=== PATIENT | male | born 1935 | race Caucasian/White ===

== ENCOUNTER 2018-07-24 00:18 | Inpatient (IN) | payer MEDICARE ==
[~2018-07-24] VITALS: Ht 170.2 cm; Wt 77.0 kg
[2018-07-24] MEDS ORDERED: piperacillin/tazo 3.375gm/50ml 50 ML IV ONE (01:50)
[2018-07-24 02:32] LABS: BASOPHILS % (AUTO) 0.2 % (0-1); EOSINOPHILS # (AUTO) 0.5 X10'3 (0-0.9); EOSINOPHILS % (AUTO) 6.6 % (0-6); HEMATOCRIT 43.8 % (42.0-52.0); HEMOGLOBIN 14.8 g/dl (14.0-17.9); LYMPHOCYTES # (AUTO) 0.8 X10'3 (1.1-4.8); LYMPHOCYTES % (AUTO) 10.3 % (21-51); MEAN CORPUSCULAR HGB CONC 33.8 % (33.0-36.5); MEAN CORPUSCULAR VOLUME 88.6 FL (78-98); MEAN PLATELET VOLUME 8.9 FL (7.4-10.4); MONOCYTES # (AUTO) 0.6 X10'3 (0-0.9); MONOCYTES % (AUTO) 8.4 % (2-12); NEUTROPHILS # (AUTO) 5.4 X10'3 (1.8-7.7); NEUTROPHILS % (AUTO) 74.5 % (42-75); PLATELET COUNT 200 X10'3 (140-440); RED BLOOD COUNT 4.94 X10'6 (4.70-6.10); RED CELL DISTRIBUTION WIDTH 14.9 % (11.5-14.5); WHITE BLOOD COUNT 7.3 X10'3 (4.5-11.0)
[2018-07-24 02:42] LABS: PROTHROMBIN TIME 10.6 SECONDS (9.0-12.0)
[2018-07-24 04:06] LABS: ALANINE AMINOTRANSFERASE 27 U/L (12-78); ALBUMIN 3.6 G/DL (3.4-5.0); ALBUMIN/GLOBULIN RATIO 0.9 (1.1-1.5); ALKALINE PHOSPHATASE 77 IU/L (46-116); ANION GAP 8 (8-16); ASPARTATE AMINO TRANSFERASE 16 U/L (10-37); BILIRUBIN,TOTAL 0.4 MG/DL (0.1-1.0); BLOOD UREA NITROGEN 17 MG/DL (7-18); BUN/CREATININE RATIO 12.5 (5.4-32.0); CALCIUM 9.1 MG/DL (8.5-10.1); CHLORIDE 103 MMOL/L (99-107); CREATININE 1.36 MG/DL (0.60-1.10); GLUCOSE 114 MG/DL (70-104); POTASSIUM 3.8 MMOL/L (3.5-5.1); SODIUM 138 MMOL/L (135-145); TOTAL CARBON DIOXIDE 27.5 MMOL/L (24-32); TOTAL PROTEIN 7.8 G/DL (6.4-8.2); eGFR 50 ML/MIN
[2018-07-24] MEDS ORDERED: LOSA50TA3 PO (06:01)
[2018-07-24] MEDS ORDERED: AMLO2.5T2 PO (06:02)
[2018-07-24] MEDS ORDERED: SYN0.088T PO (06:04)
[2018-07-24] MEDS ORDERED: LEVO25TA2 PO (06:04)
[2018-07-24] MEDS ORDERED: CLIN300C17 PO (06:06)
[2018-07-24] MEDS ORDERED: magnesium 1gm/100ml D5W IVPB 100 ML IV PRN (06:10)
[2018-07-24] MEDS ORDERED: docusate sod 100mg capsule PO PRN (06:10)
[2018-07-24] MEDS ORDERED: morphine 4 MG/ML inj SYRINge IV PRN ×2 (06:10)
[2018-07-24] MEDS ORDERED: ondansetron/PF 4mg/2ml inj IV PRN (06:10)
[2018-07-24] MEDS ORDERED: potassium Cl 20 mEq SR tablet PO PRN ×2 (06:10)
[2018-07-24] MEDS ORDERED: magnesium Cl slow-release 64mg tablet PO PRN (06:10)
[2018-07-24] MEDS ORDERED: potassium Cl 40MEQ/NS 500ml 500 ML IV PRN ×2 (06:10)
[2018-07-24] MEDS ORDERED: acetaminophen 325mg tablet PO PRN ×2 (06:10)
[2018-07-24] MEDS ORDERED: magnesium 4gm in 100ml NS 100 ML IV PRN (06:10)
[2018-07-24] MEDS ORDERED: mag hydrox/Alum hydrox/simeth 30ml oral suspension PO PRN (06:10)
[2018-07-24] MEDS: normal saline 1000ml 1,000 ML IV SCH ×2 (06:55→16:09)
[2018-07-24] MEDS: levoFLOXACIN-Levaquin 500mg/D5 100 ML IV SCH ×2 (06:55→07:16)
[2018-07-24 07:45] VITALS: BP 153/75
[2018-07-24] MEDS: K and/or MAG REPLACEMENT MC SCH (08:00)
[2018-07-24] MEDS: enoxaparin 40mg/0.4ml syringe SQ SCH (08:00)
[2018-07-24 08:51] LABS: MAGNESIUM 2.5 MG/DL (1.5-2.4)
[2018-07-24] MEDS: amLODIPine 5mg tablet PO SCH (08:51)
[2018-07-24] MEDS: levoTHYROXINE 112mcg tablet PO SCH (08:51)
[2018-07-24] MEDS: losartan 50mg tablet PO SCH (08:51)
[2018-07-24] MEDS: vancomycin/NS 1 GM ADD-VANTAGE 250 ML IV SCH (09:24)
[2018-07-24 11:00] VITALS: BP 120/60
[2018-07-24 15:00] VITALS: BP 126/57
[2018-07-24 19:00] VITALS: BP 163/67
[2018-07-24] MEDS: lactobacillus rhamnosus 10,000 MMU CELLS/CAPSULE PO SCH (19:51)
[2018-07-24] MEDS: nystatin 15 GM powder TP SCH (20:37)
[2018-07-24 23:00] VITALS: BP 123/70
[2018-07-25 05:00] VITALS: BP 127/84
[2018-07-25 05:52] LABS: BASOPHILS % (AUTO) 0.5 % (0-1); EOSINOPHILS # (AUTO) 0.6 X10'3 (0-0.9); EOSINOPHILS % (AUTO) 8.2 % (0-6); HEMATOCRIT 43.2 % (42.0-52.0); HEMOGLOBIN 14.4 g/dl (14.0-17.9); LYMPHOCYTES # (AUTO) 0.8 X10'3 (1.1-4.8); LYMPHOCYTES % (AUTO) 11.4 % (21-51); MEAN CORPUSCULAR HEMOGLOBIN 29.4 PG (27.0-31.0); MEAN CORPUSCULAR HGB CONC 33.2 % (33.0-36.5); MEAN CORPUSCULAR VOLUME 88.6 FL (78-98); MEAN PLATELET VOLUME 8.6 FL (7.4-10.4); MONOCYTES # (AUTO) 0.7 X10'3 (0-0.9); MONOCYTES % (AUTO) 9.4 % (2-12); NEUTROPHILS # (AUTO) 4.9 X10'3 (1.8-7.7); NEUTROPHILS % (AUTO) 70.5 % (42-75); PLATELET COUNT 191 X10'3 (140-440); RED BLOOD COUNT 4.88 X10'6 (4.70-6.10); RED CELL DISTRIBUTION WIDTH 14.8 % (11.5-14.5)
[2018-07-25 06:38] LABS: ALANINE AMINOTRANSFERASE 22 U/L (12-78); ALBUMIN/GLOBULIN RATIO 0.8 (1.1-1.5); ALKALINE PHOSPHATASE 56 IU/L (46-116); ANION GAP 11 (8-16); ASPARTATE AMINO TRANSFERASE 16 U/L (10-37); BILIRUBIN,TOTAL 0.7 MG/DL (0.1-1.0); BLOOD UREA NITROGEN 11 MG/DL (7-18); BUN/CREATININE RATIO 10.8 (5.4-32.0); CALCIUM 8.2 MG/DL (8.5-10.1); CHLORIDE 104 MMOL/L (99-107); CHOL/HDL RATIO 5.3 (0.00-4.99); CHOLESTEROL 155 MG/DL (0-200); CREATININE 1.02 MG/DL (0.60-1.10); GLUCOSE 103 MG/DL (70-104); HDL CHOLESTEROL 29 MG/DL (35-60); LDL CHOLESTEROL 106 MG/DL (50-100); MAGNESIUM 2.3 MG/DL (1.5-2.4); POTASSIUM 3.8 MMOL/L (3.5-5.1); SODIUM 138 MMOL/L (135-145); TOTAL CARBON DIOXIDE 22.7 MMOL/L (24-32); TOTAL PROTEIN 6.9 G/DL (6.4-8.2); TRIGLYCERIDES 131 MG/DL (20-135); eGFR 70 ML/MIN
[2018-07-25] MEDS: K and/or MAG REPLACEMENT MC SCH (08:00)
[2018-07-25] MEDS ORDERED: loperamide 2mg capsule PO ONE (08:30)
[2018-07-25] MEDS: normal saline 1000ml 1,000 ML IV SCH (08:44)
[2018-07-25] MEDS: vancomycin/NS 1 GM ADD-VANTAGE 250 ML IV SCH (08:44)
[2018-07-25] MEDS: lactobacillus rhamnosus 10,000 MMU CELLS/CAPSULE PO SCH (08:47)
[2018-07-25] MEDS: amLODIPine 5mg tablet PO SCH (08:47)
[2018-07-25] MEDS: levoTHYROXINE 112mcg tablet PO SCH (08:47)
[2018-07-25] MEDS: losartan 50mg tablet PO SCH (08:47)
[2018-07-25] MEDS: enoxaparin 40mg/0.4ml syringe SQ SCH (08:48)
[2018-07-25] MEDS: nystatin 15 GM powder TP SCH (08:51)
[2018-07-25] MEDS ORDERED: DOXY-200 PO (09:06)
[2018-07-25] MEDS ORDERED: LOPE1TAB46 PO (09:06)
[2018-07-25] MEDS ORDERED: NYSPWD TP (09:06)
[2018-07-25] MEDS ORDERED: vancomycin/NS 1 GM ADD-VANTAGE 250 ML IV SCH (19:00)
[2018-07-27] MEDS ORDERED: VANCOMYCIN LEVEL IV ONE (06:30)
== END 2018-07-25 13:00 | disposition home or self-care (01) | DRG 603 ==
LOC: ER 00:19 → ED HOLD 06:09 → PCU 3S 07:59
PROVIDERS: ADMIT Family Medicine; ATTEND Internal Medicine
DX: L03.115 Cellulitis of right lower limb (principal); I10 Essential (primary) hypertension; E03.9 Hypothyroidism, unspecified; E78.5 Hyperlipidemia, unspecified; I25.10 Atherosclerotic heart disease of native coronary artery without angina pectoris; B36.8 Other specified superficial mycoses; Z90.49 Acquired absence of other specified parts of digestive tract; Z95.1 Presence of aortocoronary bypass graft; Z95.5 Presence of coronary angioplasty implant and graft; Z79.899 Other long term (current) drug therapy; Z87.891 Personal history of nicotine dependence; Z82.49 Family history of ischemic heart disease and other diseases of the circulatory system; Z71.89 Other specified counseling
CPT/HCPCS: 36415; 73590; 80053; 80061; 83605; 83735; 84145; 84443; 85025; 85610; 86140; 87040; 87070; 87324; 87449; 96365; 99285; A6213; J1650; J1956; J2543; J3370; J7030

== ENCOUNTER 2018-07-28 09:20 | Outpatient (CLI) | payer MEDICARE ==
[~2018-07-28 09:20] MED LIST: AMLO2.5T2 PO; DOXY-200 PO; LEVO25TA2 PO; LOPE1TAB46 PO; LOSA50TA3 PO; NYSPWD TP
[2018-07-28] MEDS ORDERED: DOXY100C2 PO (11:31)
[2018-07-28] MEDS ORDERED: AMLO-93 PO (11:31)
[2018-07-28] MEDS ORDERED: LEVO112T39 PO (11:31)
[2018-07-28] MEDS ORDERED: LOSA25TA96 PO (11:31)
[2018-07-28] MEDS ORDERED: MAGN400T6 PO (11:35)
[2018-07-28] MEDS ORDERED: OMEG1CAP PO (11:35)
[2018-07-28] MEDS ORDERED: silver sulfadiazine cream 50gm TP ONE (12:04)
== END 2018-07-28 12:29 | disposition home or self-care (01) ==
LOC: WOUND CARE 09:20 → MERGE 09:20 → EDSTATUS 09:30 → WOUND CARE 12:29
PROVIDERS: ATTEND Surgery
DX: L03.115 Cellulitis of right lower limb (principal); I87.2 Venous insufficiency (chronic) (peripheral)
CPT/HCPCS: 99215; A6223; A6446

== ENCOUNTER 2018-08-11 11:02 | Outpatient (CLI) | payer MEDICARE ==
[~2018-08-11 11:02] MED LIST changes: +AMLO-93 PO; -DOXY-200 PO; +DOXY100C2 PO; +LEVO112T39 PO; +LOSA25TA96 PO; +MAGN400T6 PO; +OMEG1CAP PO
== END 2018-08-11 11:54 | disposition home or self-care (01) ==
LOC: WOUND CARE 11:02
PROVIDERS: ATTEND Surgery
DX: L97.211 Non-pressure chronic ulcer of right calf limited to breakdown of skin (principal); L03.115 Cellulitis of right lower limb; I83.11 Varicose veins of right lower extremity with inflammation; I25.10 Atherosclerotic heart disease of native coronary artery without angina pectoris; I10 Essential (primary) hypertension; E78.5 Hyperlipidemia, unspecified; E03.9 Hypothyroidism, unspecified; Z79.899 Other long term (current) drug therapy; Z90.49 Acquired absence of other specified parts of digestive tract; Z87.891 Personal history of nicotine dependence; Z95.1 Presence of aortocoronary bypass graft; Z95.5 Presence of coronary angioplasty implant and graft
CPT/HCPCS: 99214

== ENCOUNTER 2018-10-13 09:19 | Day surgery (SDC) | payer MEDICARE ==
[2018-10-13] MEDS ORDERED: silver sulfadiazine cream 50gm TP ONE (12:07)
== END 2018-10-13 12:31 | disposition home or self-care (01) ==
LOC: WOUND CARE 09:19
PROVIDERS: ATTEND Surgery
DX: L97.811 Non-pressure chronic ulcer of other part of right lower leg limited to breakdown of skin (principal); I83.013 Varicose veins of right lower extremity with ulcer of ankle; L97.311 Non-pressure chronic ulcer of right ankle limited to breakdown of skin; L03.115 Cellulitis of right lower limb; I83.11 Varicose veins of right lower extremity with inflammation; I25.10 Atherosclerotic heart disease of native coronary artery without angina pectoris; I10 Essential (primary) hypertension; E78.5 Hyperlipidemia, unspecified; E03.9 Hypothyroidism, unspecified; Z79.899 Other long term (current) drug therapy; Z90.49 Acquired absence of other specified parts of digestive tract; Z87.891 Personal history of nicotine dependence; Z95.1 Presence of aortocoronary bypass graft; Z95.5 Presence of coronary angioplasty implant and graft
CPT/HCPCS: 93971; 97597; 97598; A6223; A6441

== ENCOUNTER 2018-10-20 10:50 | Outpatient (CLI) | payer MEDICARE ==
[~2018-10-20 10:50] MED LIST changes: -AMLO-93 PO; -NYSPWD TP
== END 2018-10-20 12:04 | disposition home or self-care (01) ==
LOC: WOUND CARE 10:50 → EDSTATUS 11:00 → WOUND CARE 12:04
PROVIDERS: ATTEND Surgery
DX: L97.811 Non-pressure chronic ulcer of other part of right lower leg limited to breakdown of skin (principal); I83.013 Varicose veins of right lower extremity with ulcer of ankle; L97.311 Non-pressure chronic ulcer of right ankle limited to breakdown of skin; L03.115 Cellulitis of right lower limb; I83.11 Varicose veins of right lower extremity with inflammation; I25.10 Atherosclerotic heart disease of native coronary artery without angina pectoris; I10 Essential (primary) hypertension; E78.5 Hyperlipidemia, unspecified; E03.9 Hypothyroidism, unspecified; Z79.899 Other long term (current) drug therapy; Z90.49 Acquired absence of other specified parts of digestive tract; Z87.891 Personal history of nicotine dependence; Z95.1 Presence of aortocoronary bypass graft; Z95.5 Presence of coronary angioplasty implant and graft
CPT/HCPCS: 29581; A6223; A6441

== ENCOUNTER 2018-10-27 10:58 | Outpatient (CLI) | payer MEDICARE | END 2018-10-27 13:24 | disposition home or self-care (01) | LOC: WOUND CARE 10:58 → EDSTATUS 11:00 → WOUND CARE 13:24 | PROVIDERS: ATTEND Surgery | DX: L97.811 Non-pressure chronic ulcer of other part of right lower leg limited to breakdown of skin (principal); I83.013 Varicose veins of right lower extremity with ulcer of ankle; L97.311 Non-pressure chronic ulcer of right ankle limited to breakdown of skin; L03.115 Cellulitis of right lower limb; I83.11 Varicose veins of right lower extremity with inflammation; I25.10 Atherosclerotic heart disease of native coronary artery without angina pectoris; I10 Essential (primary) hypertension; E78.5 Hyperlipidemia, unspecified; E03.9 Hypothyroidism, unspecified; Z79.899 Other long term (current) drug therapy; Z90.49 Acquired absence of other specified parts of digestive tract; Z87.891 Personal history of nicotine dependence; Z95.1 Presence of aortocoronary bypass graft; Z95.5 Presence of coronary angioplasty implant and graft | CPT/HCPCS: 29581; A6446 ==

== ENCOUNTER 2018-11-03 10:50 | Outpatient (CLI) | payer MEDICARE ==
[2018-11-03] MEDS ORDERED: nystatin/triamcinolone cream 15gm TP ONE (13:00)
== END 2018-11-03 13:10 | disposition home or self-care (01) ==
LOC: WOUND CARE 10:50 → EDSTATUS 11:00 → WOUND CARE 13:10
PROVIDERS: ATTEND Surgery
DX: L97.811 Non-pressure chronic ulcer of other part of right lower leg limited to breakdown of skin (principal); I83.013 Varicose veins of right lower extremity with ulcer of ankle; L97.311 Non-pressure chronic ulcer of right ankle limited to breakdown of skin; L03.115 Cellulitis of right lower limb; I83.11 Varicose veins of right lower extremity with inflammation; I25.10 Atherosclerotic heart disease of native coronary artery without angina pectoris; I10 Essential (primary) hypertension; E78.5 Hyperlipidemia, unspecified; E03.9 Hypothyroidism, unspecified; Z79.899 Other long term (current) drug therapy; Z90.49 Acquired absence of other specified parts of digestive tract; Z87.891 Personal history of nicotine dependence; Z95.1 Presence of aortocoronary bypass graft; Z95.5 Presence of coronary angioplasty implant and graft
CPT/HCPCS: 29581; 99215; A6441

== ENCOUNTER 2018-11-10 10:48 | Outpatient (CLI) | payer MEDICARE | END 2018-11-10 11:58 | disposition home or self-care (01) | LOC: WOUND CARE 10:48 → EDSTATUS 11:00 → WOUND CARE 11:58 | PROVIDERS: ATTEND Surgery | DX: I83.013 Varicose veins of right lower extremity with ulcer of ankle (principal); L97.811 Non-pressure chronic ulcer of other part of right lower leg limited to breakdown of skin; L97.311 Non-pressure chronic ulcer of right ankle limited to breakdown of skin; I83.11 Varicose veins of right lower extremity with inflammation; I25.10 Atherosclerotic heart disease of native coronary artery without angina pectoris; I10 Essential (primary) hypertension; E78.5 Hyperlipidemia, unspecified; E03.9 Hypothyroidism, unspecified; Z79.899 Other long term (current) drug therapy; Z90.49 Acquired absence of other specified parts of digestive tract; Z87.891 Personal history of nicotine dependence; Z95.1 Presence of aortocoronary bypass graft; Z95.5 Presence of coronary angioplasty implant and graft | CPT/HCPCS: 29581; A6441 ==

== ENCOUNTER 2018-11-17 10:56 | Outpatient (CLI) | payer MEDICARE | END 2018-11-17 13:27 | disposition home or self-care (01) | LOC: WOUND CARE 10:56 → EDSTATUS 11:00 → WOUND CARE 13:27 | PROVIDERS: ATTEND Surgery | DX: I83.013 Varicose veins of right lower extremity with ulcer of ankle (principal); L97.811 Non-pressure chronic ulcer of other part of right lower leg limited to breakdown of skin; L97.311 Non-pressure chronic ulcer of right ankle limited to breakdown of skin; I83.11 Varicose veins of right lower extremity with inflammation; I25.10 Atherosclerotic heart disease of native coronary artery without angina pectoris; I10 Essential (primary) hypertension; E78.5 Hyperlipidemia, unspecified; E03.9 Hypothyroidism, unspecified; Z79.899 Other long term (current) drug therapy; Z90.49 Acquired absence of other specified parts of digestive tract; Z87.891 Personal history of nicotine dependence; Z95.1 Presence of aortocoronary bypass graft; Z95.5 Presence of coronary angioplasty implant and graft | CPT/HCPCS: 99214 ==

== ENCOUNTER 2018-12-08 10:49 | Outpatient (CLI) | payer MEDICARE ==
[2018-12-08] MEDS ORDERED: hydrocortisone 1% cream 28gm TP ONE (11:33)
--- NOTE | 2018-12-08 12:00 | NUR ---
Patient ambulated independently from [facility] and was admitted to outpatient wound care for physician visit with Jorge Valentine MD. Dressing removed, wound cleansed. Patient assessed for changes in conditions, medications and medical history. 1120 - Dr. Valentine at bedside accompanied by RN. Wound assessed by MD. Plan of care discussed with patient. Dressings placed per MD orders. Pt instructed to elevate legs at least 30 minutes 3 times a day or 10 minutes every 4 hours, also instructed check their toes. If they become purplish or blue, cool to the touch, numb or tingly, use a pair of scissors and carefully cut off the dressing. Call the Wound Center for an appointment to have the dressing reapplied. Pt instructed that decreased swelling in the legs and the potential for drainage from the wound may require them to have to schedule visits twice weekly, progressing to weekly as the swelling decreases in their legs. Pt instructed that if dressings become loose, wrinkled or falls down and if they are experiencing any pain or discomfort under their dressing cut the dressing off and call the Wound Center to have it reapplied. Pt instructed that the wrap needs to be kept dry. They may bath at a sink or there are devices designed to keep dressings dry these are available at most drug stores. If they choose to shower with a plastic bag taped over the wrap. Be sure to having another person available for assistance or placing towels on the floor of the shower or tub to eliminate the slick surface can reduce the risk of falls. Patient instructed on the signs and symptoms of infection and to call the Wound Center if any occur or to go to the ED if we are closed: Increased pain in wound Increase in drainage from the wound Redness in the skin surrounding the wound Bleeding from the wound Temperature of 101 or greater Patient instructed that the weight of their body puts a large amount of pressure on their wounds. This pressure keeps the new tissue from growing and inhibits new blood vessels from forming. Explained that, if they continue to bear weight on a body part that has a wound, the time it takes to heal the wound increases, the wound may get worse or the wound may not heal at all. Patient verbalized understanding of all discharge instructions and plan of care and ambulated independently out to [facility] in stable condition with no sign or symptom of distress at time of discharge.
== END 2018-12-08 11:48 | disposition home or self-care (01) ==
LOC: WOUND CARE 10:49 → EDSTATUS 11:00 → WOUND CARE 11:48
PROVIDERS: ATTEND Surgery
DX: I83.013 Varicose veins of right lower extremity with ulcer of ankle (principal); L97.311 Non-pressure chronic ulcer of right ankle limited to breakdown of skin; L97.811 Non-pressure chronic ulcer of other part of right lower leg limited to breakdown of skin; I83.11 Varicose veins of right lower extremity with inflammation; I25.10 Atherosclerotic heart disease of native coronary artery without angina pectoris; I10 Essential (primary) hypertension; E78.5 Hyperlipidemia, unspecified; E03.9 Hypothyroidism, unspecified; Z79.899 Other long term (current) drug therapy; Z90.49 Acquired absence of other specified parts of digestive tract; Z87.891 Personal history of nicotine dependence; Z95.1 Presence of aortocoronary bypass graft; Z95.5 Presence of coronary angioplasty implant and graft
CPT/HCPCS: 29581; A6441

== ENCOUNTER 2018-12-29 10:48 | Outpatient (CLI) | payer MEDICARE ==
--- NOTE | 2018-12-29 13:33 | NUR ---
Patient ambulated independently from [facility] and was admitted to outpatient wound care for physician visit. No dressings in place. Patient assessed and medications and medical history reviewed. Dr. Valentine at bedside accompanied by RN. Wound assessed and no debridement was done. Patient was diagnosed as healed and discharged. Patient instructed on the signs and symptoms of infection and to call the Wound Center if any occur or to go to the ED if we are closed: Increased pain in wound Increase in drainage from the wound Redness in the skin surrounding the wound Bleeding from the wound Temperature of 101 or greater Patient verbalized understanding of all discharge instructions and plan of care and ambulated independently out to [facility] in stable condition with no complaints. Addendum: 12/29/18 at 1336 by Bree Pickett RN Amended: Links added.
== END 2018-12-29 12:13 | disposition home or self-care (01) ==
LOC: WOUND CARE 10:48 → EDSTATUS 11:00 → WOUND CARE 12:13
PROVIDERS: ATTEND Surgery
DX: I83.013 Varicose veins of right lower extremity with ulcer of ankle (principal); L97.311 Non-pressure chronic ulcer of right ankle limited to breakdown of skin; L97.811 Non-pressure chronic ulcer of other part of right lower leg limited to breakdown of skin; I83.11 Varicose veins of right lower extremity with inflammation; I25.10 Atherosclerotic heart disease of native coronary artery without angina pectoris; I10 Essential (primary) hypertension; E78.5 Hyperlipidemia, unspecified; E03.9 Hypothyroidism, unspecified; Z79.899 Other long term (current) drug therapy; Z90.49 Acquired absence of other specified parts of digestive tract; Z87.891 Personal history of nicotine dependence; Z95.1 Presence of aortocoronary bypass graft; Z95.5 Presence of coronary angioplasty implant and graft
CPT/HCPCS: G0463

== ENCOUNTER 2019-03-31 10:35 | Outpatient (CLI) | payer MEDICARE ==
[2019-03-31] MEDS ORDERED: hydrocortisone 1% cream 28gm TP ONE (12:20)
--- NOTE | 2019-03-31 12:30 | NUR ---
Patient ambulated independently from [facility] and was admitted to outpatient wound care for physician visit with Jorge Valentine MD. Wound assessed. Patient assessed for changes in conditions, medications and medical history. 1155 - Dr. Valentine at bedside accompanied by RN. Wound assessed by MD; orders written. Plan of care discussed with patient. Dressings placed per MD orders. Patient is to follow up on an as needed basis. Patient instructed on the signs and symptoms of infection and to call the Wound Center if any occur or to go to the ED if we are closed: Increased pain in wound Increase in drainage from the wound Redness in the skin surrounding the wound Bleeding from the wound Temperature of 101 or greater Patient instructed that the weight of their body puts a large amount of pressure on their wounds. This pressure keeps the new tissue from growing and inhibits new blood vessels from forming. Explained that, if they continue to bear weight on a body part that has a wound, the time it takes to heal the wound increases, the wound may get worse or the wound may not heal at all. Patient verbalized understanding of all discharge instructions and plan of care and ambulated independently out to [facility] in stable condition with no sign or symptom of distress at time of discharge.
== END 2019-03-31 12:32 | disposition home or self-care (01) ==
LOC: WOUND CARE 10:35
PROVIDERS: ATTEND Surgery
DX: I83.11 Varicose veins of right lower extremity with inflammation (principal); L97.811 Non-pressure chronic ulcer of other part of right lower leg limited to breakdown of skin; I83.013 Varicose veins of right lower extremity with ulcer of ankle; L97.311 Non-pressure chronic ulcer of right ankle limited to breakdown of skin; I25.10 Atherosclerotic heart disease of native coronary artery without angina pectoris; B36.9 Superficial mycosis, unspecified; I10 Essential (primary) hypertension; E78.5 Hyperlipidemia, unspecified; E03.9 Hypothyroidism, unspecified; Z79.899 Other long term (current) drug therapy; Z90.49 Acquired absence of other specified parts of digestive tract; Z87.891 Personal history of nicotine dependence; Z95.1 Presence of aortocoronary bypass graft; Z95.5 Presence of coronary angioplasty implant and graft
CPT/HCPCS: A6446; G0463

== ENCOUNTER 2019-06-22 10:10 | Outpatient (CLI) | payer MEDICARE ==
[~2019-06-22 10:10] MED LIST changes: +MAGN400T28 PO; -MAGN400T6 PO
[2019-06-22] MEDS ORDERED: nystatin/triamcinolone cream 15gm TP ONE (11:18)
--- NOTE | 2019-06-22 15:45 | NUR ---
Patient ambulated independently from [facility] and was admitted to outpatient wound care for return visit with . Patient assessed and medications and medical history reviewed. Dr. Valentine at bedside accompanied by RN. Wound assessed and plan of care discussed with patient. Dressings placed per MD orders. Patient instructed on the signs and symptoms of infection and to call the Wound Center if any occur or to go to the ED if we are closed: Increased pain in wound Increase in drainage from the wound Redness in the skin surrounding the wound Bleeding from the wound Temperature of 101 or greater Patient instructed that the weight of their body puts a large amount of pressure on their wounds. This pressure keeps the new tissue from growing and inhibits new blood vessels from forming. Explained that, if they continue to bear weight on a body part that has a wound, the time it takes to heal the wound increases, the wound may get worse or the wound may not heal at all. Patient verbalized understanding of all discharge instructions and plan of care and ambulated independently out to [facility] in stable condition with no sign or symptom of distress at time of discharge. Addendum: 06/22/19 at 1547 by Bree Pickett RN Amended: Links added.
== END 2019-06-22 11:31 | disposition home or self-care (01) ==
LOC: WOUND CARE 10:10
PROVIDERS: ATTEND Surgery
DX: I83.11 Varicose veins of right lower extremity with inflammation (principal); L97.811 Non-pressure chronic ulcer of other part of right lower leg limited to breakdown of skin; I83.013 Varicose veins of right lower extremity with ulcer of ankle; L97.311 Non-pressure chronic ulcer of right ankle limited to breakdown of skin; I25.10 Atherosclerotic heart disease of native coronary artery without angina pectoris; B36.9 Superficial mycosis, unspecified; I10 Essential (primary) hypertension; E78.5 Hyperlipidemia, unspecified; E03.9 Hypothyroidism, unspecified; Z79.899 Other long term (current) drug therapy; Z90.49 Acquired absence of other specified parts of digestive tract; Z87.891 Personal history of nicotine dependence; Z95.1 Presence of aortocoronary bypass graft; Z95.5 Presence of coronary angioplasty implant and graft
CPT/HCPCS: G0463; J7999; A4663; A6446

== ENCOUNTER 2019-06-29 11:05 | Outpatient (CLI) | payer MEDICARE ==
[2019-06-29] MEDS ORDERED: nystatin/triamcinolone cream 15gm TP ONE (12:03)
--- NOTE | 2019-06-29 14:16 | NUR ---
Patient ambulated independently from [facility] and was admitted to outpatient wound care for physician visit. Dressings removed, wound cleansed. Patient assessment completed with review of patient's medical history and current medications. Darcie Valentine at bedside accompanied by RN. Wound assessed, time-out performed by MD/RN. Wound debrided as detailed in the physician progress/procedure note. Plan of care discussed with patient. Dressings placed per MD orders. Patient instructed on the signs and symptoms of infection and to call the Wound Center if any occur or to go to the ED if we are closed: Increased pain in the wound Increase in drainage from the wound Redness in the skin surrounding the wound Bleeding from the wound Temperature of 101F or greater Patient instructed that the weight of their body puts a large amount of pressure on their wounds. This pressure keeps the new tissue from growing and inhibits new blood vessels from forming. Explained that, if they continue to bear weight on a body part that has a wound, the time it takes to heal the wound increases, the wound may get worse, or the wound may not heal at all. Patient verbalized understanding of all discharge instructions and plan of care. Patient ambulated independently out to [facility] in stable condition with no signs or symptoms of distress at time of discharge.
== END 2019-06-29 12:11 | disposition home or self-care (01) ==
LOC: WOUND CARE 11:05
PROVIDERS: ATTEND Surgery
DX: I83.11 Varicose veins of right lower extremity with inflammation (principal); L97.811 Non-pressure chronic ulcer of other part of right lower leg limited to breakdown of skin; I83.013 Varicose veins of right lower extremity with ulcer of ankle; L97.311 Non-pressure chronic ulcer of right ankle limited to breakdown of skin; I25.10 Atherosclerotic heart disease of native coronary artery without angina pectoris; B36.9 Superficial mycosis, unspecified; I10 Essential (primary) hypertension; E78.5 Hyperlipidemia, unspecified; E03.9 Hypothyroidism, unspecified; Z79.899 Other long term (current) drug therapy; Z90.49 Acquired absence of other specified parts of digestive tract; Z87.891 Personal history of nicotine dependence; Z95.1 Presence of aortocoronary bypass graft; Z95.5 Presence of coronary angioplasty implant and graft
CPT/HCPCS: G0463; J7999; A4663

== ENCOUNTER 2019-07-13 10:48 | Outpatient (CLI) | payer MEDICARE | END 2019-07-13 12:50 | disposition home or self-care (01) | LOC: WOUND CARE 10:48 → EDSTATUS 11:00 → WOUND CARE 12:50 | PROVIDERS: ATTEND Surgery | DX: I83.218 Varicose veins of right lower extremity with both ulcer of other part of lower extremity and inflammation (principal); L97.811 Non-pressure chronic ulcer of other part of right lower leg limited to breakdown of skin; I83.013 Varicose veins of right lower extremity with ulcer of ankle; L97.311 Non-pressure chronic ulcer of right ankle limited to breakdown of skin; I25.10 Atherosclerotic heart disease of native coronary artery without angina pectoris; B36.9 Superficial mycosis, unspecified; I10 Essential (primary) hypertension; E78.5 Hyperlipidemia, unspecified; E03.9 Hypothyroidism, unspecified; Z79.899 Other long term (current) drug therapy; Z90.49 Acquired absence of other specified parts of digestive tract; Z87.891 Personal history of nicotine dependence; Z95.1 Presence of aortocoronary bypass graft; Z95.5 Presence of coronary angioplasty implant and graft | CPT/HCPCS: G0463 ==

== ENCOUNTER 2021-06-01 11:05 | Outpatient (CLI) | payer MEDICARE | END 2021-06-01 23:59 | disposition home or self-care (01) | LOC: VAS 11:05 | PROVIDERS: ATTEND Nurse Practitioner | DX: I87.2 Venous insufficiency (chronic) (peripheral) (principal) | CPT/HCPCS: 93970 ==